=== PATIENT | male | born 2005 | race Caucasian/White ===

== ENCOUNTER 2023-03-12 23:26 | Emergency (ER) | payer BC, SELFPAY ==
--- NOTE | ~2023-03-12 | CT_ITS ---
CT of the Abdomen and Pelvis: Indication: Abdominal pain Technique: 2.5 mm axial scans were obtained through the abdomen and pelvis following intravenous adm inistration of 100 cc of Omnipaque 350. Dose reduction technique was used on this scan by utilizing a utomated exposure control and iterative reconstruction technique. The dose-length product (DLP) was 2 45.94 mGy-cm. Findings: Scans through the lung bases are unremarkable. The liver, spleen, pancreas, gallbladder, adrenals and kidneys are within normal limits. No evidence of aortic aneurysm. No lymphadenopathy. No bowel obstruction or bowel wall thickening. There is no evidence to suggest acute appendicitis. Images through the pelvis were performed. Urinary bladder unremarkable. No pelvic mass seen. No ascit es. Bilateral L5 pars interarticularis defects are present, with minimal grade 1 anterolisthesis of L 5 over S1 of this time. Impression: No acute abnormalities seen. Bilateral L5 pars interarticularis defects, as detailed above. Reviewed, dictated and finalized at location . Impression: No acute abnormalities seen. Bilateral L5 pars interarticularis defects, as detailed above.
[2023-03-12 23:34] VITALS: BP 140/85; PULSE 75; RESP 16; TEMP 36.4; O2SAT 100
--- NOTE | 2023-03-12 23:55 | ED.NAVMDI ---
HPI - Nausea/Vomiting/Diarrhea General Chief complaint: Nausea/Vomiting/Diarrhea Stated complaint: N/V Time Seen by Provider: 03/12/23 23:36 Source: patient Mode of arrival: ambulatory Limitations: no limitations History of Present Illness HPI Narrative: Patient is a 17 y/o male who presents to the ED with c/o N/V. Patient reports he has been skateboarding frequently for the last 4-5 days and has felt dehydrated. He ate out at a restaurant around 830pm tonight and had a cheeseburger and [place] fries. He states he began feeling nauseous and developed vomiting almost immediately after dinner. He notes he was vomiting in the parking lot of the restaurant. He has been unable to keep anything down since then, which prompted his presentation. He reports having lower abdominal cramping associated with vomiting, but otherwise denies significant abdominal pain. Denies diarrhea, constipation. Notes he had a normal bowel movement tonight. Denies fever. Denies urinary symptoms. A family member did have the same meal for dinner and has not developed any symptoms. Related Data Allergies Allergy/AdvReac Type Severity Reaction Status Date / Time No Known Allergies Allergy Verified 03/13/23 01:04 Review of Systems Review of Systems: CONSTITUTIONAL: Denies fever, chills, or sweats. CARDIOVASCULAR: Denies chest pain. RESPIRATORY: Denies dyspnea. GASTROINTESTINAL: See HPI. GENITOURINARY: Denies dysuria or hematuria. SKIN: Denies rash or itching. MUSCULOSKELETAL: Denies back pain, joint pain, or myalgia. All systems reviewed & are unremarkable except as noted in HPI and below Exam Narrative: GENERAL: Well appearing, well-nourished, non-toxic, in no acute distress. HEAD: Normocephalic, atraumatic. ENT: MMs dry. NECK: Supple. No adenopathy, no masses. RESPIRATORY: Airway patent, respirations nonlabored. Clear to auscultation bilaterally, no rales, rhonchi, wheezing. CARDIOVASCULAR: Regular rate and rhythm without murmurs, rubs, or gallops. Peripheral pulses 2+ and equal bilaterally. ABDOMINAL: Soft, mild focal tenderness in RLQ, minimal tenderness in LLQ. No upper abdominal tenderness to palpation. Nondistended, no hepatosplenomegaly. Normoactive BS. MUSCULOSKELETAL: Moves all extremities. Strength/ROM intact without gross deformities. SKIN: Warm, dry, normal color. No rashes. NEURO: A&O X3. Speech clear. Cranial nerves II-XII grossly intact. Steady gait. No ataxic movements. PSYCHIATRIC: Appropriate mood and affect. Normal interaction. Course Vital Signs Vital signs: Vital Signs Temperature 97.5 F L 03/12/23 23:34 Pulse Rate 75 03/12/23 23:34 Respiratory Rate 16 03/12/23 23:34 Blood Pressure 140/85 03/12/23 23:34 Pulse Oximetry 100 03/12/23 23:34 Oxygen Delivery Room Air 03/12/23 23:34 Temperature 97.5 F L 03/12/23 23:34 Pulse Rate 75 03/12/23 23:34 Respiratory Rate 16 03/12/23 23:34 Blood Pressure 140/85 03/12/23 23:34 Pulse Oximetry 100 03/12/23 23:34 Oxygen Delivery Room Air 03/12/23 23:34 MDM - Nausea/Vomiting/Diarrhea MDM Narrative Medical decision making narrative: Patient presented to ED with persistent nausea and vomiting [facility], unable to keep down any food/drink. Vitals stable upon arrival. Afebrile. Patient reporting abdominal pain really only associated with vomiting, however patient did have mild focal right lower quadrant tenderness on exam. CBC with leukocytosis of 13.8. Neutrophil predominance. CMP unremarkable. Creatinine 1.1. No records to compare to. Urinalysis with 1+ ketones, no other signs of infection. Fluids started. CT scan of abdomen pelvis obtained due to right lower quadrant tenderness, CT without acute abnormality. No evidence of appendicitis or other abnormality. Patient feeling much better with fluids and nausea medicine. Able to tolerate p.o. intake. He will be discharged at this time. He feels comfor
[2023-03-13] VITALS (9 sets, daily range): BP systolic 120–135; BP diastolic 82–89; PULSE 62; RESP 18; O2SAT 98–100
[2023-03-13 00:02] LABS: Basophils Absolute Auto 0.1 K/mm3 (0.0-0.1); Basophils Percent Auto 0.4 % (0.2-1.2); Eosinophils Percent Auto 0.2 % (0-4.4); Hematocrit 44.9 % (42.0-52.0); Hemoglobin 15.6 g/dL (14.0-18.0); Immature Granulocyte Absolute 0.04 K/mm3 (0.00-0.031); Immature Granulocyte Percent A 0.3 % (0-0.5); Lymphocytes Absolute Auto 1.66 K/mm3 (0.9-3.2); Mean Corpuscular HGB Conc 34.7 g/dl (32-36); Mean Corpuscular Hemoglobin 31.6 pg (26-34); Mean Corpuscular Volume 90.9 fl (80-100); Mean Platelet Volume 10.1 fl (7.4-10.4); Monocytes Absolute Auto 0.8 K/mm3 (0.1-0.6); Monocytes Percent Auto 5.5 % (2.6-8.5); Neutrophils Absolute Auto 11.3 K/mm3 (1.3-6.7); Neutrophils Percent Auto 81.6 % (45.5-73.1); Platelet Count Result 245 k/mm3 (150-375); Red Blood Count 4.94 M/mm3 (4.6-6.20); Red Cell Distribution Width 13.2 % (11.5-14.5); White Blood Count 13.8 K/mm3 (4.5-10.0)
[2023-03-13 00:08] LABS: Add Urine Microscopic? YES; Appearance Urine Clear (Clear); Bacteria Urine None Seen /hpf; Bilirubin Urine Negative (Negative); Blood Urine Negative (Negative); Color Urine Dark Yellow (Yellow); Glucose Urine UA Negative (Negative); Ketones Urine 1+ mg/dL (Negative); Leukocyte Esterase Ur Negative LEU/UL (Negative); Nitrate Urine Negative (Negative); Non Pathogenic Casts 0-2; Protein Urine Trace mg/dL (Negative); RBC Urine 0-2 /hpf (0-2); Specific Grav Ur 1.031 (1.001-1.035); Squamous Epithelial Cell Urine None seen /hpf (Few); WBC Urine 0-5 /hpf
[2023-03-13 00:11] LABS: Alanine Aminotransferase 43 U/L (6-50); Albumin Level 5.6 g/dL (3.7-5.6); Alkaline Phosphatase 107 U/L (58-237); Anion Gap 14 mmol/L (8-16); Aspartate Amino Transferase 53 U/L (17-59); Bilirubin,Total 1.2 mg/dL (0.2-1.3); Blood Urea Nitrogen 19 mg/dL (8-21); Calcium 10.3 mg/dL (8.9-10.7); Carbon Dioxide 25 mmol/L (22-30); Chloride 97 mmol/L (98-107); Estimated CRCL calculation 92 ml/min; Estimated Glomerular Filt Rate > 60; Glucose 106 mg/dL (65-110); Lipase 60 U/L (23-300); Potassium 3.7 mmol/L (3.4-5.0); Sodium 136 mmol/L (134-143)
[2023-03-13] MEDS: ONDANSETRON INJ 4 MG/2 ML VIAL IV PUSH (01:05)
[2023-03-13] MEDS: SODIUM CHLORIDE 0.9% IV 1,000 ML 999 ML IV CONT (01:05)
== END 2023-03-13 02:51 | disposition home or self-care (01) ==
PROVIDERS: Emergency Provider Physician Assistant
DX: R11.2 Nausea with vomiting, unspecified (principal)
CPT/HCPCS: 36415; 74177; 80053; 81001; 83690; 85025; 96361; 96374; 99284; J2405; J7030; Q9967

== ENCOUNTER 2024-10-14 22:57 | Emergency (ER) | payer BC, SELFPAY ==
--- OUTSIDE RECORDS SUMMARY | 2024-10-14 22:59 | XMS_ITS | Clinical Summary ---
Author Organization [facility] Address [address] [place] [phone] Care Team Providers Care Reconciliation Coordinator Name Role Phone Unknown, Notinfile Primary Care Provider Unavail able Allergies No known active allergies Medications ibuprofen (ADVIL,MOTRIN) 200 mg tab/cap Take by mouth every 6 (six) hours as needed for pain Taking PRN Active predniSONE (DELTASONE) 10 mg tablet Take 5 tabs (50mg) daily for 2 days, then take 4 tabs (40mg) daily for 2 days. Continue to decrease by 1 tab (10mg) every 2 days until gone. 30 tablet 12/18/2022 Active azithromycin (ZITHROMAX) 250 mg tablet Take 2 tabs (500 mg) by mouth today, than 1 tab (250 mg) daily for 4 days. 6 tablet 12/18/2022 Active Active Problems No known active problems Resolved Problems Problem Noted Date Diagnosed Date Resolved Date Fracture of distal end of radius 04/25/2017 11/13/2022 Medical History Medical History Date Comments Fracture of distal end of radius 04/25/2017 Family History Medical History Relation Name Comments Low Back Pain Father Family history of low back pain - (Added by TW Conv) Low Back Pain Mother Family history of low back pain - (Added by TW Conv) Scoliosis Mother Family history of scoliosis - (Added by TW Conv) Arthritis Neg Hx Chiari malformation Neg Hx Relation Name Status Comments Father Mother Social History Tobacco Use Types Packs/Day Years Used Date Smoking Tobacco: Never Smokeless Tobacco: Never Tobacco Cessation:Counseling Given: Not Answered Alcohol Use Standard Drinks/Week Comments No 0 (1 standard drink = 0.6 oz pur e alcohol) Personal Safety Answer Date Recorded Getting School Help Needed Not on file 10/15 Sex and Gender Information Value Date Recorded Sex Assigned at Not on file 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 Gender Identity Not on file Sexual Orientation Not on file Obstetrics History Last Filed Vital Signs Vital Sign Reading Time Taken Comments Blood Pressure 102/70 12/18/2022 11:13 AM CDT Pulse 80 12/18/2022 11:13 AM CDT Temperature 36.8 C (98.3 F) 12/18/2022 11:13 AM CDT Respiratory Rate 18 12/18/2022 11:13 AM CDT Oxygen Saturation 97% 12/18/2022 11:13 AM CDT Inhaled Oxygen Concentration - - Weight 70.3 kg (155 lb) 12/18/2022 11:13 AM CDT Height 177.8 cm (5' 10 ) 12/18/2022 11:13 AM CDT Body Mass Index 22.24 12/18/2022 11:13 AM CDT Plan of Treatment Health Maintenance Due Date Last Done Comments Depression Screening 2003 Hepatitis C Screening 2003 HPV Vaccines (1 - Male 3-dos e series) 2018 Meningococcal B Vaccine (1 o f 2 - Standard) 2019 Regular Well Visit/Exam 18-64 2021 Influenza Vaccine (#1) 2024 05/21/2007, 2005 DTaP/Tdap/Td Vaccine (7 - Td or Tdap) 04/28/2025 04/28/2015, 12/29/2008, 05/21/2007, Additional history exists Hepatitis B Screening Completed 02/26/2007 , 03/20/2006, 01/27/2006, Additional history exists Pneumococcal vaccine <65 Completed 007, 05/29/2006, 03/20/2006, Additional history exists Varicella Vaccines Completed 12/29/2008, 11/27/2006 Meningococcal Vaccine Completed 04/30/2021 Insurance BLUE ACC CHOICE OOS [facility] ACCESS CHOICE [facility] CIG[employer] OPEN ACCESS CIGNA OPEN ACCESS BLUE ACC CHOICE OOS Care Teams Reconciliation Coordinator Relationship Specialty Start Date End Date Unknown, Notinfile PCP - General 11/07/22
--- OUTSIDE RECORDS SUMMARY | 2024-10-14 22:59 | XMS_ITS | Referral Summary ---
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
[2024-10-14 23:01] VITALS: BP 138/84; PULSE 76; RESP 20; TEMP 36.8; O2SAT 98
--- NOTE | 2024-10-15 01:20 | PC.NURSE ---
Patient to desk, states he called another hospital and they said they do not have a wait and he is going to be seen there.
--- OUTSIDE RECORDS SUMMARY | 2024-10-15 01:33 | XMS_ITS | Referral Summary ---
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
--- OUTSIDE RECORDS SUMMARY | 2024-10-15 01:33 | XMS_ITS | Clinical Summary ---
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
== END 2024-10-15 01:20 | disposition left against medical advice (07) ==
LOC: ANHED 10-15 01:30
DX: R05.9 Cough, unspecified (principal)
CPT/HCPCS: 99199